=== PATIENT | male | born 1955 | race Caucasian/White ===

== ENCOUNTER 2019-02-05 18:55 | Emergency (ER) | payer BC ==
[2019-02-05] MEDS: TETRACAINE 0.5% 4 ML OPH BOTH EYES (20:47)
[2019-02-05] MEDS: FLUORESCEIN STRIP BOTH EYES (20:47)
[2019-02-05] MEDS: HYDROCODONE/APAP (10/325) TAB PO (20:47)
[2019-02-05] MEDS: DIPHENHYDRAMINE 50 MG CAP PO (22:18)
== END 2019-02-05 22:30 | disposition home or self-care (01) ==
LOC: FTE 22:30
DX: T65.891A Toxic effect of other specified substances, accidental (unintentional), initial encounter (principal); H10.213 Acute toxic conjunctivitis, bilateral; I10 Essential (primary) hypertension; I25.2 Old myocardial infarction; E11.9 Type 2 diabetes mellitus without complications; Z79.82 Long term (current) use of aspirin; Z79.84 Long term (current) use of oral hypoglycemic drugs; Z98.61 Coronary angioplasty status
CPT/HCPCS: 99283